=== PATIENT | female | born 1960 | race Caucasian/White ===

== ENCOUNTER 2018-09-20 05:57 | Outpatient (CLI) | payer OTHER ==
[~2018-09-20] VITALS: Ht 162.6 cm; Wt 81.6 kg
[2018-09-20] MEDS ORDERED: ATOR40TA70 PO (14:31)
[2018-09-20] MEDS ORDERED: ATEN50TA PO (14:31)
[2018-09-20] MEDS ORDERED: LISI1TAB10 PO (14:31)
[2018-09-20] MEDS ORDERED: LEVO112T55 PO (14:31)
[2018-09-20] MEDS ORDERED: INSU100V16 SQ (14:31)
[2018-09-20] MEDS ORDERED: NFESTCO.45 PO (14:31)
[2018-09-20] MEDS ORDERED: CHOL20003 PO (14:31)
[2018-09-20] MEDS ORDERED: ASPI-808 PO (14:31)
[2018-09-20] MEDS ORDERED: INSU100I34 SQ (14:31)
[2018-09-20] MEDS ORDERED: GABA-486 PO (14:31)
== END 2018-09-20 14:38 | disposition home or self-care (01) ==
LOC: PREOP 05:57
PROVIDERS: ATTEND Specialist
DX: Z01.818 Encounter for other preprocedural examination (principal)

== ENCOUNTER 2018-09-22 06:24 | Day surgery (SDC) | payer OTHER ==
[~2018-09-22] VITALS: Ht 162.6 cm; Wt 81.6 kg
[~2018-09-22 06:24] MED LIST: ASPI-808 PO; ATEN50TA PO; ATOR40TA70 PO; CHOL20003 PO; GABA-486 PO; INSU100I34 SQ; INSU100V16 SQ; LEVO112T55 PO; LISI1TAB10 PO; NFESTCO.45 PO
[2018-09-22 06:25] VITALS: BP 158/78
[2018-09-22] MEDS ORDERED: LIDOCAINE PF 1% 2 ML AMP IR PRN (06:30)
[2018-09-22] MEDS ORDERED: POVIDONE (BETADINE) OPHTH SOLN 5% 30 ML OP ONE (06:30)
[2018-09-22] MEDS ORDERED: TIMOLOL MALEATE 0.5% 5 ML (TIMOPTIC) BTL OU PRN (06:30)
[2018-09-22] MEDS ORDERED: MOXIFLOXACIN OPHTH SOLN 5 MG/ML 0.3 ML SYRINGE OP ONE (06:30)
[2018-09-22] MEDS: TETRACAINE 0.5% OPHTH SOLN 4 ML BTL (SINGLE DOSE ONLY) OU PRN ×4 (06:41→07:03)
[2018-09-22] MEDS ORDERED: MIDAZOLAM 2 MG/2 ML (VERSED) VIAL ONE (06:43)
[2018-09-22] MEDS: CYCLOPENTOLATE 1% (CYCLOGYL) 2 ML DROPS OP SCH ×3 (06:49→07:03)
[2018-09-22] MEDS: PHENYLEPHRINE 10% OPHTH (NEO-SYN) 5 ML BTL OU SCH ×3 (06:49→07:03)
--- NOTE | 2018-09-22 07:28 | Ophthalmologist Pre-Op Note ---
Pre-Operative Progress Note H&P Reviewed The H&P was reviewed, patient examined and no changes noted. Date H&P Reviewed: Sep 22, 2018 Time H&P Reviewed: 07:28 Pre-Op Dx Cataract, Left Eye JAQUELINE CATHERINE MD Sep 22, 2018 07:28
--- NOTE | 2018-09-22 07:56 | Ophthalmology Operative Report ---
Cataract removal/placement IOL PREOPERATIVE DIAGNOSIS: Cataract Left Eye POSTOPERATIVE DIAGNOSIS: Cataract Left Eye PROCEDURE: Cataract removal and placement of posterior chamber implant, left eye SURGEON: Remington Catherine ANESTHESIA: Topical with sedation COMPLICATIONS: None ESTIMATED BLOOD LOSS: Minimal DESCRIPTION OF PROCEDURE: After proper informed consent was obtained, the patient, a [id number] female, was taken to the Operating Room and the left eye was anesthetized with tetracaine. The left eye was then prepped and draped in the usual manner. A wire lid speculum was placed. A paracentesis was made at the left hand position. Preservative free lidocaine was injected into the anterior chamber followed by viscoelastic. A clear corneal incision was made in the temporal position. A capsulorrhexis was preformed and the central nuclear and cortical material were removed. The posterior capsule was polished and an Marcelo 22.0 AU00T0 was placed into the capsular bag. The residual viscoelastic was aspirated and balanced saline solution was injected into the anterior chamber. Moxifloxacin was injected into the anterior chamber. The wound was checked and found to be water tight. The patient tolerated the procedure well without complications. REMINGTON CATHERINE MD Sep 22, 2018 07:56
[2018-09-22] MEDS ORDERED: acetaZOLAMIDE ER 500 MG CAP (DIAMOX SEQUELS) PO ONE (08:00)
[2018-09-22 08:05] VITALS: BP 120/72
--- NOTE | 2018-09-22 10:24 | Anesthesia-General Post-Op ---
MAC Patient Condition Mental Status/LOC: Same as Preop Cardiovascular: Satisfactory Nausea/Vomiting: Absent Respiratory: Satisfactory Pain: Controlled Complications: Absent Post Op Complications Complications None Follow Up Care/Instructions Patient Instructions None needed. Anesthesiology Discharge Order Discharge Order Patient is doing well, no complaints, stable vital signs, no apparent adverse anesthesia problems. No complications reported per nursing. EMERALD YANEZ CRNA Sep 22, 2018 10:24
--- OUTSIDE RECORDS SUMMARY | 2018-09-22 17:49 | XMS REPORT | CCD ---
Author Author Cuca Bundy Organization [facility] Address [address] [place] [address] Phone Care Team Providers Care Connection Worker Name Role Phone PP Unavailable CCM Unavailable Summary Purpose Interface Exchange Insurance Providers Payer name Policy type / Coverage type Covered republican ID Effective Begin Date Effective End Date [employer] Commercial Insurance [id number] Unknown Family history Brother Diagnosis Age At Onset Hypertension Unknown Diabetes Unknown Hyperlipidemia Unknown Mother Diagnosis Age At Onset Hypertension Unknown Hyperlipidemia Unknown Heart Attack Unknown Diabetes Unknown Father Diagnosis Age At Onset Hypertension Unknown Hyperlipidemia Unknown Social History Social History Element Codes Description Effective Dates Marital status Unknown bryan 12/30/2017 Number of children Unknown 2 12/30/2017 Employment Unknown Retired 12/30/[address]: 485180750 Never smoker 12/30/[address]: 925411494 Never drinks alcohol 12/30/2017 Allergies, Adverse Reactions, Alerts Substance Reaction Codes Entered Date Inactivated Date Status NO KNOWN DRUG ALLERGIES Unknown 12/30/2017 No Inactive Date Active Past Medical History Illness Codes Condition Status Onset Date Resolved Date Essential (primary) hypertension ICD-9: 401.1 ICD-10: I10 Active 12/30/2017 Unknown Mixed hyperlipidemia ICD- 9: 272.2 ICD-10: E78.2 Active 12/30/2017 Unknown Other specified hypothyroidism ICD-9: 244.8 ICD-10: E03.8 Active 12/30/2017 Unknown Type 1 diabetes mellitus without complications ICD-9: 250.00 ICD-10: E10.9 Active 12/30/2017 Unknown Diabetes Unknown Active 12/30/2017 Unknown Problems Condition Codes Effective Dates Condition Status Essential (primary) hypertension ICD-9: 401.1 ICD-10: I10 12/30/2017 Active Mixed hyperlipidemia ICD- 9: 272.2 ICD-10: E78.2 12/30/2017 Active Other specified hypothyroidism ICD-9: 244.8 ICD-10: E03.8 12/30/2017 Active Type 1 diabetes mellitus without complications ICD-9: 250.00 ICD-10: E10.9 12/30/2017 Active Diabetes Unknown 12/30/2017 Active Medications Medication Codes Instructions Start Date Stop Date Status Fill Instructions Basaglar KwikPen U-100 Insulin 100 unit/mL (3 mL) subcutaneous RxNorm: 0866762 22 Unit(s) SQ BID 01/19/2018 No Stop Date Active dispense quantity sufficient for 3 month supply Lipitor 40 mg tablet RxNorm: 267127 1 Tablet(s) PO QHS 01/19/2018 01/13/2019 Active Humalog KwikPen (U-100) Insulin 100 unit/mL subcutaneous RxNorm: 9066151 Unit(s) SQ UD per sliding scale TID 01/19/2018 No Stop Date Active Dispense quantity sufficient for 3 months Premarin 0.45 mg tablet RxNorm: 451214 1 Tablet(s) PO daily 01/19/2018 01/13/2019 Active gabapentin 100 mg capsule RxNorm: 472981 1 Capsule(s) PO TID 01/19/2018 01/13/2019 Active atenolol 50 mg tablet RxNorm: 851445 1 Tablet(s) PO daily 01/19/2018 01/13/2019 Active lisinopril 20 mg-hydrochlorothiazide 25 mg tablet RxNorm: 426762 1 Tablet(s) PO daily 01/19/2018 01/13/2019 Active levothyroxine 112 mcg tablet RxNorm: 659964 1 Tablet(s) PO daily 01/19/2018 01/13/2019 Active Lipitor 40 mg tablet RxNorm: 861942 1 Tablet(s) PO QHS 01/19/2018 01/18/2018 Inactive aspirin 325 mg tablet RxNorm: 372491 1 Tablet(s) PO daily No Start Date Active Vitamin D3 2,000 unit capsule RxNorm: 979542 1 Capsule(s) PO daily No Start Date Active Premarin 0.45 mg tablet RxNorm: 612732 1 Tablet(s) PO daily No Start Date 01/18/2018 Inactive Lantus Solostar U-100 Insulin 100 unit/mL (3 mL) subcutaneous pen RxNorm: 573072 22 Unit(s) SQ BID No Start Date 01/10/2018 Inactive levothyroxine 112 mcg tablet RxNorm: 301197 1 Tablet(s) PO daily No Start Date 01/18/2018 Inactive Humalog KwikPen (U-100) Insulin 100 unit/mL subcutaneous RxNorm: 3783373 Unit(s) SQ us per sliding scale TID No Start Date 01/18/2018 Inactive simvastatin 40 mg tablet RxNorm: 886627 1 Tablet(s) PO daily No Start Date 01/18/2018 Inactive gabapentin 100 mg capsule RxNorm: 766581 1 Capsule(s) PO TID No Start Date 01/18/2018 Inactive lisinopril 20 mg-hydrochlorothiazide 25 mg tablet RxNorm: 446744 1 Tablet(s) PO daily No Start Date 01/18/2018 Inactive Basaglar KwikPen U-100 Insulin 100 unit/mL (3 mL) subcutaneous RxNorm: 7162729 22 Unit(s) SQ BID No Start Date 01/18/2018 Inactive dispense quantity sufficient for 3 month supply atenolol 50 mg tablet RxNorm: 782709 1 Tablet(s) PO daily No Start Date 01/18/2018 Inactive Medication Administered No Medication Administered data Immunizations No Immunization data Assessments Condition Codes Effective Dates Essential (primary) hypertension ICD-10: I10 ICD-9: 401.1 03/31/2018 Type 1 diabetes mellitus without complications ICD-10: E10.9 ICD-9: 250.00 03/31/2018 Mixed hyperlipidemia ICD-10: E78.2 ICD-9: 272.2 03/31/2018 Other specified hypothyroidism ICD-10: E03.8 ICD-9: 244.8 03/31/2018 Reason For Visit Reason For Visit Effective Dates Notes diabetes mellitus 03/31/2018 diabetes mellitus 12/30/2017 Results Observation Observation Code Item Item Code Result Date Comp Metabolic Wpa349 NA 138 mEq/L 01/06/2018 Comp Metabolic Jjm456 K 3.7 mEq/L 01/06/2018 Comp Metabolic Zcu858 CL 101 mEq/L 01/06/2018 Comp Metabolic Lrw226 CO2 24.0 mEq/L 01/06/2018 Comp Metabolic Lhn193 ANION GAP 17 01/06/2018 Comp Metabolic Hnp991 GLUCOSE 110 mg/dL 01/06/2018 Comp Metabolic Fzn886 Creat 0.9 mg/dL 01/06/2018 Comp Metabolic Xgc324 eGFR 70 ml/min/1.73m2 01/06/2018 Comp Metabolic Prz577 BUN 16 mg/dL 01/06/2018 Comp Metabolic Pgu563 B/C Ratio 18.0 Ratio 01/06/2018 Comp Metabolic Tqf792 CALCIUM 9.9 mg/dL 01/06/2018 Comp Metabolic Vay210 ALK PHOS 91 U/L 01/06/2018 Comp Metabolic Nyu613 AST(SGOT) 17 U/L 01/06/2018 Comp Metabolic Sqc955 ALT(SGPT) 21 U/L 01/06/2018 Comp Metabolic Uzp901 BILI T 1.0 mg/dL 01/06/2018 Comp Metabolic Blj075 ALBUMIN 4.5 g/dL 01/06/2018 Comp Metabolic Pkc211 TPRO 7.3 g/dL 01/06/2018 Comp Metabolic Sdq147 GLOB 2.9 g/dL 01/06/2018 Comp Metabolic Loa484 A/G Ratio 1.6 Ratio 01/06/2018 Comp Metabolic Zcf517 Osmo 278 mOsmo 01/06/2018 %Hba1C Xmi933 % HbA1c 24024- 6 6.9 % 01/06/2018 %Hba1C Udt815 Gluc Ave 151 mg/dL 01/06/2018 Lipid Ord30 CHOL 244 mg/dL 01/06/2018 Lipid Ord30 HDL 62.0 mg/dl 01/06/2018 Lipid Ord30 TRIG 107 mg/dL 01/06/2018 Lipid Ord30 LDL 161 mg/dL 01/06/2018 Lipid Ord30 C/HDL 3.9 Ratio 01/06/2018 Cbc With Differential Ord2 WBC 11.39 K/ul 01/06/2018 Cbc With Differential Ord2 RBC 4.33 M/ul 01/06/2018 Cbc With Differential Ord2 HGB 14.3 g/dl 01/06/2018 Cbc With Differential Ord2 HCT 42.1 % 01/06/2018 Cbc With Differential Ord2 Neut% 71.5 % 01/06/2018 Cbc With Differential Ord2 MCV 97.2 fl 01/06/2018 Cbc With Differential Ord2 Lymph% 20.5 % 01/06/2018 Cbc With Differential Ord2 MCH 33.0 pg 01/06/2018 Cbc With Differential Ord2 [place]% 7.7 % 01/06/2018 Cbc With Differential Ord2 MCHC 34.0 pg 01/06/2018 Cbc With Differential Ord2 Eos% 0.1 % 01/06/2018 Cbc With Differential Ord2 PLT 277 K/ul 01/06/2018 Cbc With Differential Ord2 Baso% 0.2 % 01/06/2018 Cbc With Differential Ord2 RDW 14.6 % 01/06/2018 Cbc With Differential Ord2 Neut ABS# 8.14 K/ul 01/06/2018 Cbc With Differential Ord2 Lymph ABS# 2.34 K/ul 01/06/2018 Cbc With Differential Ord2 [place] ABS# 0.9 K/ul 01/06/2018 Cbc With Differential Ord2 Eos ABS# 0.0 K/ul 01/06/2018 Cbc With Differential Ord2 Baso ABS# 0.0 K/ul 01/06/2018 Free T4 Ork862 FREE T4 1.13 ng/dL 01/06/2018 Tsh Ord6 TSH (3rd IS) 1.40 uIU/mL 01/06/2018 Review of Systems System Result Effective Dates Constitutional No recent illness 03/31/2018 Constitutional No fever 03/31/2018 Constitutional No diaphoresis 03/31/2018 Constitutional No chills 03/31/2018 Eyes No eye erythema 03/31/2018 Ears/Nose/Throat/Neck No nasal discharge 03/31/2018 Ears/Nose/Throat/Neck No nasal allergies 03/31/2018 Cardiovascular No chest pain/pressure 03/31/2018 Cardiovascular No dyspnea 03/31/2018 Respiratory No cough 03/31/2018 Gastrointestinal No abdominal pain 03/31/2018 Gastrointestinal No diarrhea 03/31/2018 Gastrointestinal No constipation 03/31/2018 Neurologic No alteration of consciousness 03/31/2018 Neurologic No mental status change 03/31/2018 Constitutional No recent illness 12/30/2017 Constitutional No chills 12/30/2017 Constitutional No diaphoresis 12/30/2017 Constitutional No fever 12/30/2017 Eyes No eye erythema 12/30/2017 Ears/Nose/Throat/Neck No nasal discharge 12/30/2017 Ears/Nose/Throat/Neck No nasal allergies 12/30/2017 Cardiovascular No chest pain/pressure 12/30/2017 Cardiovascular No dyspnea 12/30/2017 Respiratory No cough 12/30/2017 Respiratory No chest congestion 12/30/2017 Gastrointestinal No abdominal pain 12/30/2017 Gastrointestinal No constipation 12/30/2017 Gastrointestinal No diarrhea 12/30/2017 Musculoskeletal No joint complaint 12/30/2017 Dermatologic No rash 12/30/2017 Neurologic No alteration of consciousness 12/30/2017 Neurologic No mental status change 12/30/2017 Musculoskeletal muscle weakness 12/30/2017 Physical Exam Exam Name System Name Item Name Status Result Effective Dates Notes Full Exam - General 1994 Constitutional general appearance Overall: well developed 03/31/2018 None Full Exam - General 1994 Constitutional general appearance Overall: in no acute distress 03/31/2018 None Full Exam - General 1994 Constitutional general appearance Overall: well nourished 03/31/2018 None Full Exam - General 1994 Eyes conjunctiva/eyelids Overall: conjunctiva clear 03/31/2018 None Full Exam - General 1994 Eyes conjunctiva/eyelids Overall: cornea clear 03/31/2018 None Full Exam - General 1994 Eyes conjunctiva/eyelids Overall: eyelids normal 03/31/2018 None Full Exam - General 1994 Ears/Nose/Throat otoscopic exam Overall: tympanic membranes clear 03/31/2018 None Full Exam - General 1994 Ears/Nose/Throat otoscopic exam Overall: external auditory canals clear 03/31/2018 None Full Exam - General 1994 Ears/Nose/Throat lips/teeth/gingiva Overall: benign lips 03/31/2018 None Full Exam - General 1994 Ears/Nose/Throat oral cavity/pharynx/larynx Overall: oral mucosa clear 03/31/2018 None Full Exam - General 1994 Respiratory respiratory effort/rhythm Overall: normal rate 03/31/2018 None Full Exam - General 1994 Respiratory respiratory effort/rhythm Overall: no retractions 03/31/2018 None Full Exam - General 1994 Respiratory auscultation Overall: breath sounds clear bilaterally 03/31/2018 None Full Exam - General 1994 Cardiovascular auscultation of heart Overall: regular rate 03/31/2018 None Full Exam - General 1994 Cardiovascular auscultation of heart Overall: normal heart sounds 03/31/2018 None Full Exam - General 1994 Musculoskeletal gait and station Gait: asymmetric 03/31/2018 None Full Exam - General 1994 Musculoskeletal gait and station Gait: abnormal stride length 03/31/2018 None Full Exam - General 1994 Musculoskeletal gait and station Gait: abnormal stance 03/31/2018 None Full Exam - General 1994 Musculoskeletal gait and station Gait: unable to turn quickly 03/31/2018 None Full Exam - General 1994 Musculoskeletal head and neck Overall: head atraumatic 03/31/2018 None Full Exam - General 1994 Neurologic cranial nerves Overall: crainial nerves 2 - 12 grossly intact 03/31/2018 None Full Exam - General 1994 Psychiatric orientation/consciousness Overall: oriented to person, place and time 03/31/2018 None Full Exam - General 1994 Psychiatric mood and affect Overall: normal mood and affect 03/31/2018 None Full Exam - General 1994 Psychiatric appearance Overall: well-groomed, good eye contact 03/31/2018 None Full Exam - General 1994 Constitutional general appearance Overall: well developed 12/30/2017 None Full Exam - General 1994 Constitutional general appearance Overall: in no acute distress 12/30/2017 None Full Exam - General 1994 Constitutional general appearance Overall: well nourished 12/30/2017 None Full Exam - General 1994 Eyes conjunctiva/eyelids Overall: eyelids normal 12/30/2017 None Full Exam - General 1994 Eyes conjunctiva/eyelids Overall: cornea clear 12/30/2017 None Full Exam - General 1994 Eyes conjunctiva/eyelids Overall: conjunctiva clear 12/30/2017 None Full Exam - General 1994 Eyes pupils and irises Overall: pupils equal, round, reactive to light and accomodation 12/30/2017 None Full Exam - General 1994 Ears/Nose/Throat otoscopic exam Overall: tympanic membranes clear 12/30/2017 None Full Exam - General 1994 Ears/Nose/Throat otoscopic exam Overall: external auditory canals clear 12/30/2017 None Full Exam - General 1994 Ears/Nose/Throat lips/teeth/gingiva Overall: benign lips 12/30/2017 None Full Exam - General 1994 Ears/Nose/Throat oral cavity/pharynx/larynx Overall: oral mucosa clear 12/30/2017 None Full Exam - General 1994 Ears/Nose/Throat oral cavity/pharynx/larynx Overall: oropharyngeal mucosa clear 12/30/2017 None Full Exam - General 1994 Respiratory respiratory effort/rhythm Overall: normal rate 12/30/2017 None Full Exam - General 1994 Respiratory respiratory effort/rhythm Overall: no retractions 12/30/2017 None Full Exam - General 1994 Respiratory auscultation Overall: breath sounds clear bilaterally 12/30/2017 None Full Exam - General 1994 Cardiovascular auscultation of heart Overall: regular rate 12/30/2017 None Full Exam - General 1994 Cardiovascular auscultation of heart Overall: normal heart sounds 12/30/2017 None Full Exam - General 1994 Abdomen abdominal exam Overall: normal bowel sounds 12/30/2017 None Full Exam - General 1994 Abdomen abdominal exam Overall: no tenderness 12/30/2017 None Full Exam - General 1994 Musculoskeletal head and neck Overall: head atraumatic 12/30/2017 None Full Exam - General 1994 Musculoskeletal gait and station Overall: normal station 12/30/2017 None Full Exam - General 1994 Musculoskeletal gait and station Overall: normal gait 12/30/2017 None Full Exam - General 1994 Neurologic cranial nerves Overall: crainial nerves 2 - 12 grossly intact 12/30/2017 None Full Exam - General 1994 Psychiatric orientation/consciousness Overall: oriented to person, place and time 12/30/2017 None Full Exam - General 1994 Psychiatric mood and affect Overall: normal mood and affect 12/30/2017 None Full Exam - General 1994 Psychiatric appearance Overall: well-groomed, good eye contact 12/30/2017 None Procedures No Procedures data Vital Signs Date Vital 03/31/2018 Blood Pressure 1: 122/74 Code: 8480-6 BMI: 31.4 Code: 62008-9 Heart Rate 1: 72 bpm Height: 5'4" SpO2: 97% Weight: 183 lbs 12/30/2017 Blood Pressure 1: 140/76 Code: 8480-6 Blood Pressure 1: 158/92 Code: 8480-6 BMI: 31.8 Code: 88040-2 Heart Rate 1: 84 bpm Height: 5'4" SpO2: 98% Weight: 185 lbs Functional Status No Functional Status data History of Present Illness Symptom Name Status Result Effective Date Notes Quality insulin dependent 03/31/2018 None Quality chronic 03/31/2018 None Nutrition regular diet 03/31/2018 None Location oral intake 03/31/2018 None diabetes mellitus Quality insulin dependent 12/30/2017 None diabetes mellitus Quality chronic 12/30/2017 None diabetes mellitus Test results Pt checking blood glucose readings, did not bring results to clinic 12/30/2017 None diabetes mellitus Glucose monitoring before meals 12/30/2017 None diabetes mellitus Glucose monitoring fasting 12/30/2017 None diabetes mellitus Nutrition regular diet 12/30/2017 None diabetes mellitus Exercise no exercise 12/30/2017 None diabetes mellitus Blood glucose levels between 60 and 120 12/30/2017 None diabetes mellitus Test results HgbA1c level 6.1 12/30/2017 None medication follow up Additional Comments medication use 12/30/2017 None medication follow up Location oral intake 12/30/2017 None Advance Directives No Advance Directive data Encounters Encounter Performer Location Codes Date [address] EST. PATIENT, LEVEL III Diagnosis: Essential (primary) hypertension[ICD10: I10] Diagnosis: Type 1 diabetes mellitus without complications[ICD10: E10.9] Diagnosis: Mixed hyperlipidemia[ICD10: E78.2] Diagnosis: Other specified hypothyroidism[ICD10: E03.8] [facility] CPT-4: [id number] 03/31/2018 OFFICE VISIT, NEW - LEVEL 4 Diagnosis: Type 1 diabetes mellitus without complications[ICD10: E10.9] Diagnosis: Other specified hypothyroidism[ICD10: E03.8] Diagnosis: Essential (primary) hypertension[ICD10: I10] Diagnosis: Mixed hyperlipidemia[ICD10: E78.2] [facility] CPT-4: [id number] 12/30/2017 Plan of Care Planned Activity Notes Codes Status Date Care Plan: Comp Metabolic Pending 04/03/2018 Care Plan: %Hba1C LOINC : 45927-5 Pending 04/03/2018 Care Plan: Tsh Pending 04/03/2018 Care Plan: Lipid Pending 04/03/2018 Care Plan: Free T4 Pending 04/03/2018 Visit Plan: Diabetes Mellitus - controlled - per recent FSBS reports. I have recommended for the patient to have follow up labs prior to the next office visit. The patient has been instructed to continue with current medications as previously directed, continue with regular FSBS monitoring to assure continued control of diabetes. Pt to call for any acute concerns, complaints, or if the blood glucose readings are starting to become less controlled. Hypertension - well controlled - continue with current medications, continue with no added salt diet. Pt has been encouraged to exercise daily. The pt has been advised to call the office if there are any acute concerns about change in blood pressure readings at home. Hypothyroidism - pt with chronic hypothyroidism, continue with current medication, will monitor pt to signs or symptoms of lack of adequate supplementation. Pt is to continue with current dose of medication unless directed otherwise. Check labs at regular intervals q 3 months or q 6 months based on previous levels of control. Hyperlipidemia - pt has been counseled about appropriate diet, exercise, and need for low fat food choices. I have discussed the need for the patient to take medications as pre scribed. If the patient has negative side effects from the medication, they are to CALL the office and not abruptly discontinue the medication without discussion with a practitioner in the office. We will check labs in 3-6 months for follow up on the patient's chronic medical problem and to assure normal liver response to medications. 03/31/2018 [facility]ment[facility] Bund[phone] [id number] ([facility] min[facility] Moderate 03/31/2018 Patient Education: Patient Medication Summary Completed 03/31/2018 Patient Education: Cholesterol Management Completed 03/31/2018 Visit Plan: Diabetes Mellitus - controlled - per recent FSBS reports. I have recommended for the patient to have follow up labs prior to the next office visit. The patient has been instructed to continue with current medications as previously directed, continue with regular FSBS monitoring to assure continued control of diabetes. Pt to call for any acute concerns, complaints, or if the blood glucose readings are starting to become less controlled. Hypertension - well controlled - continue with current medications, continue with no added salt diet. Pt has been encouraged to exercise daily. The pt has been advised to call the office if there are any acute concerns about change in blood pressure readings at home. Hypothyroidism - pt with chronic hypothyroidism, continue with current medication, will monitor pt to signs or symptoms of lack of adequate supplementation. Pt is to continue with current dose of medication unless directed otherwise. Check labs at regular intervals q 3 months or q 6 months based on previous levels of control. Hyperlipidemia - pt has been counseled about appropriate diet, exercise, and need for low fat food choices. I have discussed the need for the patient to take medications as pre scribed. If the patient has negative side effects from the medication, they are to CALL the office and not abruptly discontinue the medication without discussion with a practitioner in the office. We will check labs in 3-6 months for follow up on the patient's chronic medical problem and to assure normal liver response to medications. 12/30/2017 [facility]ment: [facility] Bund[phone] [id number] New Patient 12/30/2017 Patient Education: Patient Medication Summary Completed 12/30/2017 Patient Education: Cholesterol Management Completed 12/30/2017 Instructions Comment . Diabetes Mellitus - controlled - per recent FSBS reports. I have recommended for the patient to have follow up labs prior to the next office visit. The patient has been instructed to continue with current medications as previously directed, continue with regular FSBS monitoring to assure continued control of diabetes. Pt to call for any acute concerns, complaints, or if the blood glucose readings are starting to become less controlled. Hypertension - well controlled - continue with current medications, continue with no added salt diet. Pt has been encouraged to exercise daily. The pt has been advised to call the office if there are any acute concerns about change in blood pressure readings at home. Hypothyroidism - pt with chronic hypothyroidism, continue with current medication, will monitor pt to signs or symptoms of lack of adequate supplementation. Pt is to continue with current dose of medication unless directed otherwise. Check labs at regular intervals q 3 months or q 6 months based on previous levels of control. Hyperlipidemia - pt has been counseled about appropriate diet, exercise, and need for low fat food choices. I have discussed the need for the patient to take medications as prescribed. If the patient has negative side effects from the medication, they are to CALL the office and not abruptly discontinue the medication without discussion with a practitioner in the office. We will check labs in 3-6 months for follow up on the patient's chronic medical problem and to assure normal liver response to medications. . Diabetes Mellitus - controlled - per recent FSBS reports. I have recommended for the patient to have follow up labs prior to the next office visit. The patient has been instructed to continue with current medications as previously directed, continue with regular FSBS monitoring to assure continued control of diabetes. Pt to call for any acute concerns, complaints, or if the blood glucose readings are starting to become less controlled. Hypertension - well controlled - continue with current medications, continue with no added salt diet. Pt has been encouraged to exercise daily. The pt has been advised to call the office if there are any acute concerns about change in blood pressure readings at home. Hypothyroidism - pt with chronic hypothyroidism, continue with current medication, will monitor pt to signs or symptoms of lack of adequate supplementation. Pt is to continue with current dose of medication unless directed otherwise. Check labs at regular intervals q 3 months or q 6 months based on previous levels of control. Hyperlipidemia - pt has been counseled about appropriate diet, exercise, and need for low fat food choices. I have discussed the need for the patient to take medications as prescribed. If the patient has negative side effects from the medication, they are to CALL the office and not abruptly discontinue the medication without discussion with a practitioner in the office. We will check labs in 3-6 months for follow up on the patient's chronic medical problem and to assure normal liver response to medications.
--- OUTSIDE RECORDS SUMMARY | 2018-09-22 17:49 | XMS REPORT | CCD ---
Author Author Cuca Bundy Organization [facility] Address [address] [place] [address] Phone Care Team Providers Care Head Paper Tester Name Role Phone PP Unavailable CCM Unavailable Summary Purpose Interface Exchange Insurance Providers Payer name Policy type / Coverage type Covered alliance party ID Effective Begin Date Effective End Date CIGNA Commercial Insurance [id number] Unknown Family history Brother Diagnosis Age At [...] Unknown Retired 12/30/[address]: 380789769 Never smoker 12/30/[address]: 897781755 Never drinks alcohol 12/30/2017 Allergies, Adverse Reactions, [...] Insulin 100 unit/mL (3 mL) subcutaneous RxNorm: 6062610 22 Unit(s) SQ BID 01/19/2018 No Stop Date Active dispense quantity sufficient for 3 month supply Lipitor 40 mg tablet RxNorm: 037796 1 Tablet(s) PO QHS 01/19/2018 01/13/2019 Active Humalog KwikPen (U-100) Insulin 100 unit/mL subcutaneous RxNorm: 4494870 Unit(s) SQ UD per sliding scale TID 01/19/2018 No Stop Date Active Dispense quantity sufficient for 3 months Premarin 0.45 mg tablet RxNorm: 912263 1 Tablet(s) PO daily 01/19/2018 01/13/2019 Active gabapentin 100 mg capsule RxNorm: 694235 1 Capsule(s) PO TID 01/19/2018 01/13/2019 Active atenolol 50 mg tablet RxNorm: 574056 1 Tablet(s) PO daily 01/19/2018 01/13/2019 Active lisinopril 20 mg-hydrochlorothiazide 25 mg tablet RxNorm: 744157 1 Tablet(s) PO daily 01/19/2018 01/13/2019 Active levothyroxine 112 mcg tablet RxNorm: 193804 1 Tablet(s) PO daily 01/19/2018 01/13/2019 Active Lipitor 40 mg tablet RxNorm: 275301 1 Tablet(s) PO QHS 01/19/2018 01/18/2018 Inactive aspirin 325 mg tablet RxNorm: 728638 1 Tablet(s) PO daily No Start Date Active Vitamin D3 2,000 unit capsule RxNorm: 997077 1 Capsule(s) PO daily No Start Date Active Premarin 0.45 mg tablet RxNorm: 729150 1 Tablet(s) PO daily No Start Date 01/18/2018 Inactive Lantus Solostar U-100 Insulin 100 unit/mL (3 mL) subcutaneous pen RxNorm: 802508 22 Unit(s) SQ BID No Start Date 01/10/2018 Inactive levothyroxine 112 mcg tablet RxNorm: 605964 1 Tablet(s) PO daily No Start Date 01/18/2018 Inactive Humalog KwikPen (U-100) Insulin 100 unit/mL subcutaneous RxNorm: 1341076 Unit(s) SQ us per sliding scale TID No Start Date 01/18/2018 Inactive simvastatin 40 mg tablet RxNorm: 730430 1 Tablet(s) PO daily No Start Date 01/18/2018 Inactive gabapentin 100 mg capsule RxNorm: 580890 1 Capsule(s) PO TID No Start Date 01/18/2018 Inactive lisinopril 20 mg-hydrochlorothiazide 25 mg tablet RxNorm: 030560 1 Tablet(s) PO daily No Start Date 01/18/2018 Inactive Basaglar KwikPen U-100 Insulin 100 unit/mL (3 mL) subcutaneous RxNorm: 6168509 22 Unit(s) SQ BID No Start Date 01/18/2018 Inactive dispense quantity sufficient for 3 month supply atenolol 50 mg tablet RxNorm: 724685 1 Tablet(s) PO daily No Start Date [...] Item Item Code Result Date Comp Metabolic Olk906 NA 138 mEq/L 01/06/2018 Comp Metabolic Fxb998 K 3.7 mEq/L 01/06/2018 Comp Metabolic Bet257 CL 101 mEq/L 01/06/2018 Comp Metabolic Rnj402 CO2 24.0 mEq/L 01/06/2018 Comp Metabolic Rio249 ANION GAP 17 01/06/2018 Comp Metabolic Ysr126 GLUCOSE 110 mg/dL 01/06/2018 Comp Metabolic Lqy239 Creat 0.9 mg/dL 01/06/2018 Comp Metabolic Syg092 eGFR 70 ml/min/1.73m2 01/06/2018 Comp Metabolic Bjk516 BUN 16 mg/dL 01/06/2018 Comp Metabolic Zxy569 B/C Ratio 18.0 Ratio 01/06/2018 Comp Metabolic Tas783 CALCIUM 9.9 mg/dL 01/06/2018 Comp Metabolic Mht817 ALK PHOS 91 U/L 01/06/2018 Comp Metabolic Ypp684 AST(SGOT) 17 U/L 01/06/2018 Comp Metabolic Kmw769 ALT(SGPT) 21 U/L 01/06/2018 Comp Metabolic Voj657 BILI T 1.0 mg/dL 01/06/2018 Comp Metabolic Faz053 ALBUMIN 4.5 g/dL 01/06/2018 Comp Metabolic Tbr333 TPRO 7.3 g/dL 01/06/2018 Comp Metabolic Bji780 GLOB 2.9 g/dL 01/06/2018 Comp Metabolic Obs385 A/G Ratio 1.6 Ratio 01/06/2018 Comp Metabolic Jlg580 Osmo 278 mOsmo 01/06/2018 %Hba1C Lml952 % HbA1c 46618- 6 6.9 % 01/06/2018 %Hba1C Xvp560 Gluc Ave 151 mg/dL 01/06/2018 Lipid Ord30 [...] 33.0 pg 01/06/2018 Cbc With Differential Ord2 [place]% 7.7 % 01/06/2018 Cbc With Differential Ord2 [...] 2.34 K/ul 01/06/2018 Cbc With Differential Ord2 [place] ABS# 0.9 K/ul 01/06/2018 Cbc With Differential Ord2 Eos ABS# 0.0 K/ul 01/06/2018 Cbc With Differential Ord2 Baso ABS# 0.0 K/ul 01/06/2018 Free T4 [id number] FREE T4 1.13 ng/dL 01/06/2018 Tsh Ord6 [...] 1: 122/74 Code: 8480-6 BMI: 31.4 Code: 92907-6 Heart Rate 1: 72 bpm Height: 5'4" SpO2: 97% Weight: 183 lbs 12/30/2017 Blood Pressure 1: 140/76 Code: 8480-6 Blood Pressure 1: 158/92 Code: 8480-6 BMI: 31.8 Code: 11001-4 Heart Rate 1: 84 bpm Height: 5'4" [...] data Encounters Encounter Performer Location Codes Date 10397 EST. PATIENT, LEVEL III Diagnosis: Essential (primary) hypertension[ICD10: I10] Diagnosis: Type 1 diabetes mellitus without complications[ICD10: E10.9] Diagnosis: Mixed hyperlipidemia[ICD10: E78.2] Diagnosis: Other specified hypothyroidism[ICD10: E03.8] [facility] CPT-4: 60027 03/31/2018 OFFICE VISIT, NEW - LEVEL 4 Diagnosis: Type 1 diabetes mellitus without complications[ICD10: E10.9] Diagnosis: Other specified hypothyroidism[ICD10: E03.8] Diagnosis: Essential (primary) hypertension[ICD10: I10] Diagnosis: Mixed hyperlipidemia[ICD10: E78.2] [facility] CPT-4: 42417 12/30/2017 Plan of Care Planned Activity Notes Codes Status Date Care Plan: Comp Metabolic Pending 04/03/2018 Care Plan: %Hba1C LOINC : 23699-7 Pending 04/03/2018 Care Plan: Tsh Pending 04/03/2018 [...] assure normal liver response to medications. 03/31/2018 Visit Plan: Diabetes Mellitus - controlled [...] to medications. 03/31/2018 Appointment: Cuca Bundy WPtel: [address] [place], [place] [id number] (15 min) Moderate 03/31/2018 Patient Education: Patient [...] medications. 12/30/2017 [facility]ment: [facility] [phone] [facility] [facility] 12/30/2017 Patient Education: Patient [...]
--- OUTSIDE RECORDS SUMMARY | 2018-09-22 17:50 | XMS REPORT | CCD ---
Author Author Cuca Bundy Organization [facility] Address [address] [place] [address] Phone Care Team Providers Care Educational Resource Coordinator Name Role Phone PP Unavailable CCM Unavailable Summary Purpose Interface Exchange Insurance Providers Payer name Policy type / Coverage type Covered green party ID Effective Begin Date Effective End Date C[employer]NA Commercial Insurance [id number] Unknown Family history Brother Diagnosis Age At [...] Unknown Retired 12/30/[address]: 531624758 Never smoker 12/30/[address]: 749631912 Never drinks alcohol 12/30/2017 Allergies, Adverse Reactions, [...] Insulin 100 unit/mL (3 mL) subcutaneous RxNorm: 7419577 22 Unit(s) SQ BID 01/19/2018 No Stop Date Active dispense quantity sufficient for 3 month supply Lipitor 40 mg tablet RxNorm: 240129 1 Tablet(s) PO QHS 01/19/2018 01/13/2019 Active Humalog KwikPen (U-100) Insulin 100 unit/mL subcutaneous RxNorm: 1491583 Unit(s) SQ UD per sliding scale TID 01/19/2018 No Stop Date Active Dispense quantity sufficient for 3 months Premarin 0.45 mg tablet RxNorm: 834714 1 Tablet(s) PO daily 01/19/2018 01/13/2019 Active gabapentin 100 mg capsule RxNorm: 622857 1 Capsule(s) PO TID 01/19/2018 01/13/2019 Active atenolol 50 mg tablet RxNorm: 055564 1 Tablet(s) PO daily 01/19/2018 01/13/2019 Active lisinopril 20 mg-hydrochlorothiazide 25 mg tablet RxNorm: 562041 1 Tablet(s) PO daily 01/19/2018 01/13/2019 Active levothyroxine 112 mcg tablet RxNorm: 716189 1 Tablet(s) PO daily 01/19/2018 01/13/2019 Active Lipitor 40 mg tablet RxNorm: 176365 1 Tablet(s) PO QHS 01/19/2018 01/18/2018 Inactive aspirin 325 mg tablet RxNorm: 379164 1 Tablet(s) PO daily No Start Date Active Vitamin D3 2,000 unit capsule RxNorm: 574410 1 Capsule(s) PO daily No Start Date Active Premarin 0.45 mg tablet RxNorm: 701960 1 Tablet(s) PO daily No Start Date 01/18/2018 Inactive Lantus Solostar U-100 Insulin 100 unit/mL (3 mL) subcutaneous pen RxNorm: 093395 22 Unit(s) SQ BID No Start Date 01/10/2018 Inactive levothyroxine 112 mcg tablet RxNorm: 527830 1 Tablet(s) PO daily No Start Date 01/18/2018 Inactive Humalog KwikPen (U-100) Insulin 100 unit/mL subcutaneous RxNorm: 6735816 Unit(s) SQ us per sliding scale TID No Start Date 01/18/2018 Inactive simvastatin 40 mg tablet RxNorm: 924492 1 Tablet(s) PO daily No Start Date 01/18/2018 Inactive gabapentin 100 mg capsule RxNorm: 205616 1 Capsule(s) PO TID No Start Date 01/18/2018 Inactive lisinopril 20 mg-hydrochlorothiazide 25 mg tablet RxNorm: 464161 1 Tablet(s) PO daily No Start Date 01/18/2018 Inactive Basaglar KwikPen U-100 Insulin 100 unit/mL (3 mL) subcutaneous RxNorm: 9666253 22 Unit(s) SQ BID No Start Date 01/18/2018 Inactive dispense quantity sufficient for 3 month supply atenolol 50 mg tablet RxNorm: 344482 1 Tablet(s) PO daily No Start Date [...] Item Item Code Result Date Comp Metabolic Bmz221 NA 138 mEq/L 01/06/2018 Comp Metabolic Zqv019 K 3.7 mEq/L 01/06/2018 Comp Metabolic Fzh441 CL 101 mEq/L 01/06/2018 Comp Metabolic Jcw859 CO2 24.0 mEq/L 01/06/2018 Comp Metabolic Kjd889 ANION GAP 17 01/06/2018 Comp Metabolic Gmx971 GLUCOSE 110 mg/dL 01/06/2018 Comp Metabolic Vgl800 Creat 0.9 mg/dL 01/06/2018 Comp Metabolic Wdd123 eGFR 70 ml/min/1.73m2 01/06/2018 Comp Metabolic Qhy027 BUN 16 mg/dL 01/06/2018 Comp Metabolic Sfe269 B/C Ratio 18.0 Ratio 01/06/2018 Comp Metabolic Wub269 CALCIUM 9.9 mg/dL 01/06/2018 Comp Metabolic Bia595 ALK PHOS 91 U/L 01/06/2018 Comp Metabolic Jbs152 AST(SGOT) 17 U/L 01/06/2018 Comp Metabolic Cax598 ALT(SGPT) 21 U/L 01/06/2018 Comp Metabolic Twn379 BILI T 1.0 mg/dL 01/06/2018 Comp Metabolic Hor111 ALBUMIN 4.5 g/dL 01/06/2018 Comp Metabolic Tcm547 TPRO 7.3 g/dL 01/06/2018 Comp Metabolic Saq835 GLOB 2.9 g/dL 01/06/2018 Comp Metabolic Jgm404 A/G Ratio 1.6 Ratio 01/06/2018 Comp Metabolic Bbd863 Osmo 278 mOsmo 01/06/2018 %Hba1C Soq300 % HbA1c 61721- 6 6.9 % 01/06/2018 %Hba1C Ihp595 Gluc Ave 151 mg/dL 01/06/2018 Lipid Ord30 [...] 33.0 pg 01/06/2018 Cbc With Differential Ord2 [place]% 7.7 % 01/06/2018 Cbc With Differential Ord2 [...] 2.34 K/ul 01/06/2018 Cbc With Differential Ord2 [place] ABS# 0.9 K/ul 01/06/2018 Cbc With Differential Ord2 Eos ABS# 0.0 K/ul 01/06/2018 Cbc With Differential Ord2 Baso ABS# 0.0 K/ul 01/06/2018 Free T4 [id number] FREE T4 1.13 ng/dL 01/06/2018 Tsh Ord6 [...] 1: 122/74 Code: 8480-6 BMI: 31.4 Code: 38877-3 Heart Rate 1: 72 bpm Height: 5'4" SpO2: 97% Weight: 183 lbs 12/30/2017 Blood Pressure 1: 140/76 Code: 8480-6 Blood Pressure 1: 158/92 Code: 8480-6 BMI: 31.8 Code: 02747-0 Heart Rate 1: 84 bpm Height: 5'4" [...] data Encounters Encounter Performer Location Codes Date [address]5680 EST. PATIENT, LEVEL III Diagnosis: Essential (primary) hypertension[ICD10: I10] Diagnosis: Type 1 diabetes mellitus without complications[ICD10: E10.9] Diagnosis: Mixed hyperlipidemia[ICD10: E78.2] Diagnosis: Other specified hypothyroidism[ICD10: E03.8] [facility] CPT-4: 57303 03/31/2018 OFFICE VISIT, NEW - LEVEL 4 Diagnosis: Type 1 diabetes mellitus without complications[ICD10: E10.9] Diagnosis: Other specified hypothyroidism[ICD10: E03.8] Diagnosis: Essential (primary) hypertension[ICD10: I10] Diagnosis: Mixed hyperlipidemia[ICD10: E78.2] [facility] CPT-4: 88988 12/30/2017 Plan of Care Planned Activity Notes Codes Status Date Care Plan: Comp Metabolic Pending 04/03/2018 Care Plan: %Hba1C LOINC : 41503-3 Pending 04/03/2018 Care Plan: Tsh Pending 04/03/2018 [...] medications. 03/31/2018 App[facility]ment: [facility] [phone] [id number] ([facility]) Moderate 03/31/2018 Patient Education: [...] medications. 12/30/2017 App[facility]ment: [facility] [phone] [facility] New Patient 12/30/2017 Patient Education: Patient [...]
--- OUTSIDE RECORDS SUMMARY | 2018-09-22 17:50 | XMS REPORT | CCD ---
Author Author Cuca Bundy Organization [facility], [facility] Address [address] [place] [address] Phone Care Team Providers Care Machine Operator Hop Worker Name Role Phone PP Unavailable CCM Unavailable Summary Purpose Interface Exchange Insurance Providers Payer name Policy type / Coverage type Covered libertarian ID Effective Begin Date Effective End Date C[employer] Commercial Insurance [id number] Unknown Family history Brother Diagnosis Age At [...] Unknown Retired 12/30/[address]: 650218277 Never smoker 12/30/[address]: 266195678 Never drinks alcohol 12/30/2017 Allergies, Adverse Reactions, Alerts Substance Reaction Codes Entered Date Inactivated Date Status NO KNOWN DRUG ALLERGIES Unknown 12/30/2017 No Inactive Date Active Past Medical History Illness Codes Condition Status Onset Date Resolved Date Diabetes Unknown Active 12/30/2017 Unknown Essential (primary) hypertension ICD-9: 401.1 ICD-10: I10 Active 12/30/2017 Unknown Mixed hyperlipidemia ICD- 9: 272.2 ICD-10: E78.2 Active 12/30/2017 Unknown Other specified hypothyroidism ICD-9: 244.8 ICD-10: E03.8 Active 12/30/2017 Unknown Type 1 diabetes mellitus without complications ICD-9: 250.00 ICD-10: E10.9 Active 12/30/2017 Unknown Problems Condition Codes Effective Dates Condition Status Diabetes Unknown 12/30/2017 Active Essential (primary) hypertension ICD-9: 401.1 ICD-10: I10 12/30/2017 Active Mixed hyperlipidemia ICD- 9: 272.2 ICD-10: E78.2 12/30/2017 Active Other specified hypothyroidism ICD-9: 244.8 ICD-10: E03.8 12/30/2017 Active Type 1 diabetes mellitus without complications ICD-9: 250.00 ICD-10: E10.9 12/30/2017 Active Medications Medication Codes Instructions Start Date Stop Date Status Fill Instructions Basaglar KwikPen U-100 Insulin 100 unit/mL (3 mL) subcutaneous RxNorm: 2229102 22 Unit(s) SQ BID 01/19/2018 No Stop Date Active dispense quantity sufficient for 3 month supply Lipitor 40 mg tablet RxNorm: 241664 1 Tablet(s) PO QHS 01/19/2018 01/13/2019 Active Humalog KwikPen (U-100) Insulin 100 unit/mL subcutaneous RxNorm: 3239147 Unit(s) SQ UD per sliding scale TID 01/19/2018 No Stop Date Active Dispense quantity sufficient for 3 months Premarin 0.45 mg tablet RxNorm: 253962 1 Tablet(s) PO daily 01/19/2018 01/13/2019 Active gabapentin 100 mg capsule RxNorm: 159931 1 Capsule(s) PO TID 01/19/2018 01/13/2019 Active atenolol 50 mg tablet RxNorm: 495977 1 Tablet(s) PO daily 01/19/2018 01/13/2019 Active lisinopril 20 mg-hydrochlorothiazide 25 mg tablet RxNorm: 211938 1 Tablet(s) PO daily 01/19/2018 01/13/2019 Active levothyroxine 112 mcg tablet RxNorm: 411731 1 Tablet(s) PO daily 01/19/2018 01/13/2019 Active Lipitor 40 mg tablet RxNorm: 529427 1 Tablet(s) PO QHS 01/19/2018 01/18/2018 Inactive aspirin 325 mg tablet RxNorm: 915923 1 Tablet(s) PO daily No Start Date Active Vitamin D3 2,000 unit capsule RxNorm: 150410 1 Capsule(s) PO daily No Start Date Active Premarin 0.45 mg tablet RxNorm: 762907 1 Tablet(s) PO daily No Start Date 01/18/2018 Inactive Lantus Solostar U-100 Insulin 100 unit/mL (3 mL) subcutaneous pen RxNorm: 090791 22 Unit(s) SQ BID No Start Date 01/10/2018 Inactive levothyroxine 112 mcg tablet RxNorm: 041886 1 Tablet(s) PO daily No Start Date 01/18/2018 Inactive Humalog KwikPen (U-100) Insulin 100 unit/mL subcutaneous RxNorm: 2478753 Unit(s) SQ us per sliding scale TID No Start Date 01/18/2018 Inactive simvastatin 40 mg tablet RxNorm: 036386 1 Tablet(s) PO daily No Start Date 01/18/2018 Inactive gabapentin 100 mg capsule RxNorm: 392761 1 Capsule(s) PO TID No Start Date 01/18/2018 Inactive lisinopril 20 mg-hydrochlorothiazide 25 mg tablet RxNorm: 731099 1 Tablet(s) PO daily No Start Date 01/18/2018 Inactive Basaglar KwikPen U-100 Insulin 100 unit/mL (3 mL) subcutaneous RxNorm: 3757758 22 Unit(s) SQ BID No Start Date 01/18/2018 Inactive dispense quantity sufficient for 3 month supply atenolol 50 mg tablet RxNorm: 134117 1 Tablet(s) PO daily No Start Date 01/18/2018 Inactive Medication Administered No Medication Administered data Immunizations No Immunization data Assessments Condition Codes Effective Dates Mixed hyperlipidemia ICD-10: E78.2 ICD-9: 272.2 12/30/2017 Other specified hypothyroidism ICD-10: E03.8 ICD-9: 244.8 12/30/2017 Essential (primary) hypertension ICD-10: I10 ICD-9: 401.1 12/30/2017 Type 1 diabetes mellitus without complications ICD-10: E10.9 ICD-9: 250.00 12/30/2017 Reason For Visit Reason For Visit Effective Dates Notes diabetes mellitus 12/30/2017 Results Observation Observation Code Item Item Code Result Date Comp Metabolic Pos024 NA 138 mEq/L 01/06/2018 Comp Metabolic Nzo111 K 3.7 mEq/L 01/06/2018 Comp Metabolic Nnv962 CL 101 mEq/L 01/06/2018 Comp Metabolic Bvr689 CO2 24.0 mEq/L 01/06/2018 Comp Metabolic Qix184 ANION GAP 17 01/06/2018 Comp Metabolic Hql755 GLUCOSE 110 mg/dL 01/06/2018 Comp Metabolic Zpy358 Creat 0.9 mg/dL 01/06/2018 Comp Metabolic Hyy727 eGFR 70 ml/min/1.73m2 01/06/2018 Comp Metabolic Ycb630 BUN 16 mg/dL 01/06/2018 Comp Metabolic Lxp470 B/C Ratio 18.0 Ratio 01/06/2018 Comp Metabolic Pko339 CALCIUM 9.9 mg/dL 01/06/2018 Comp Metabolic Rrd674 ALK PHOS 91 U/L 01/06/2018 Comp Metabolic Cii327 AST(SGOT) 17 U/L 01/06/2018 Comp Metabolic Hpk195 ALT(SGPT) 21 U/L 01/06/2018 Comp Metabolic Evl504 BILI T 1.0 mg/dL 01/06/2018 Comp Metabolic Nat203 ALBUMIN 4.5 g/dL 01/06/2018 Comp Metabolic Oyg173 TPRO 7.3 g/dL 01/06/2018 Comp Metabolic Rvq462 GLOB 2.9 g/dL 01/06/2018 Comp Metabolic Wnm133 A/G Ratio 1.6 Ratio 01/06/2018 Comp Metabolic Urg031 Osmo 278 mOsmo 01/06/2018 %Hba1C Zig894 % HbA1c 63238- 6 6.9 % 01/06/2018 %Hba1C Kiv078 Gluc Ave 151 mg/dL 01/06/2018 Lipid Ord30 CHOL 244 mg/dL 01/06/2018 Lipid Ord30 HDL 62.0 mg/dl 01/06/2018 Lipid Ord30 TRIG 107 mg/dL 01/06/2018 Lipid Ord30 LDL 161 mg/dL 01/06/2018 Lipid Ord30 C/HDL 3.9 Ratio 01/06/2018 Cbc With Differential Ord2 WBC 11.39 K/ul 01/06/2018 Cbc With Differential Ord2 RBC 4.33 M/ul 01/06/2018 Cbc With Differential Ord2 HGB 14.3 g/dl 01/06/2018 Cbc With Differential Ord2 Neut% 71.5 % 01/06/2018 Cbc With Differential Ord2 HCT 42.1 % 01/06/2018 Cbc With Differential Ord2 MCV 97.2 fl 01/06/2018 Cbc With Differential Ord2 Lymph% 20.5 % 01/06/2018 Cbc With Differential Ord2 MCH 33.0 pg 01/06/2018 Cbc With Differential Ord2 [place]% 7.7 % 01/06/2018 Cbc With Differential Ord2 [...] 2.34 K/ul 01/06/2018 Cbc With Differential Ord2 [place] ABS# 0.9 K/ul 01/06/2018 Cbc With Differential Ord2 Eos ABS# 0.0 K/ul 01/06/2018 Cbc With Differential Ord2 Baso ABS# 0.0 K/ul 01/06/2018 Free T4 [id number] FREE T4 1.13 ng/dL 01/06/2018 Tsh Ord6 TSH (3rd IS) 1.40 uIU/mL 01/06/2018 Review of Systems System Result Effective Dates Constitutional No recent illness 12/30/2017 Constitutional No [...] No Procedures data Vital Signs Date Vital 12/30/2017 Blood Pressure 1: 140/76 Code: 8480-6 Blood Pressure 1: 158/92 Code: 8480-6 BMI: 31.8 Code: 80137-1 Heart Rate 1: 84 bpm Height: 5'4" SpO2: 98% Weight: 185 lbs Functional Status No Functional Status data History of Present Illness Symptom Name Status Result Effective Date Notes diabetes mellitus Quality insulin dependent 12/30/2017 None [...] data Encounters Encounter Performer Location Codes Date OFFICE VISIT, NEW - LEVEL 4 Diagnosis: Type 1 diabetes mellitus without complications[ICD10: E10.9] Diagnosis: Other specified hypothyroidism[ICD10: E03.8] Diagnosis: Essential (primary) hypertension[ICD10: I10] Diagnosis: Mixed hyperlipidemia[ICD10: E78.2] [facility] CPT-4: 12195 12/30/2017 Plan of Care Planned Activity Notes Codes Status Date Visit Plan: Diabetes Mellitus - controlled - [...] to medications. 12/30/2017 Appointment: [facility] [phone] [facility] [facility] 12/30/2017 Patient [...]
--- OUTSIDE RECORDS SUMMARY | 2018-09-22 17:51 | XMS REPORT | CCD ---
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 [id number] Unknown Family history Brother Diagnosis Age At [...] Unknown Retired 12/30/[address]: 870402489 Never smoker 12/30/[address]: 966323534 Never drinks alcohol 12/30/2017 Allergies, Adverse Reactions, [...] Start Date Stop Date Status Fill Instructions Premarin 0.45 mg tablet RxNorm: 999272 1 Tablet(s) PO daily No Start Date Active aspirin 325 mg tablet RxNorm: 392113 1 Tablet(s) PO daily No Start Date Active Lantus Solostar U-100 Insulin 100 unit/mL (3 mL) subcutaneous pen RxNorm: 108129 22 Unit(s) SQ BID No Start Date Active levothyroxine 112 mcg tablet RxNorm: 620015 1 Tablet(s) PO daily No Start Date Active Humalog KwikPen (U-100) Insulin 100 unit/mL subcutaneous RxNorm: 5152681 Unit(s) SQ us per sliding scale TID No Start Date Active simvastatin 40 mg tablet RxNorm: 691663 1 Tablet(s) PO daily No Start Date Active Vitamin D3 2,000 unit capsule RxNorm: 260897 1 Capsule(s) PO daily No Start Date Active gabapentin 100 mg capsule RxNorm: 445721 1 Capsule(s) PO TID No Start Date Active lisinopril 20 mg-hydrochlorothiazide 25 mg tablet RxNorm: 535742 1 Tablet(s) PO daily No Start Date Active atenolol 50 mg tablet RxNorm: 592443 1 Tablet(s) PO daily No Start Date Active Medication Administered No Medication Administered data Immunizations No Immunization data Assessments Condition Codes Effective Dates Mixed hyperlipidemia ICD-10: E78.2 ICD-9: 272.2 12/30/2017 Other specified hypothyroidism ICD-10: E03.8 ICD-9: 244.8 12/30/2017 Essential (primary) hypertension ICD-10: I10 ICD-9: 401.1 12/30/2017 Type 1 diabetes mellitus without complications ICD-10: E10.9 ICD-9: 250.00 12/30/2017 Reason For Visit Reason For Visit Effective Dates Notes diabetes mellitus 12/30/2017 Results No Results data Review of Systems System Result Effective Dates [...] Signs Date Vital 12/30/2017 Blood Pressure 1: 158/92 Code: 8480-6 Blood Pressure 1: 140/76 Code: 8480-6 BMI: 31.8 Code: 67349-4 Heart Rate 1: 84 bpm Height: 5'4" [...] hyperlipidemia[ICD10: E78.2] [facility] CPT-4: 47920 12/30/2017 Plan of Care Planned Activity Notes [...] medications. 12/30/2017 Appointment: [facility] Bund[facility] [phone] [facility] [facility] 12/30/2017 Patient Education: Patient Medication [...]
--- OUTSIDE RECORDS SUMMARY | 2018-09-22 17:51 | XMS REPORT | CCD ---
Author Author Cuca Bundy Organization Renu Mancera MD, [facility] Address [address] [place] [address] Phone Care Team Providers Care Anesthesia Resident Name Role Phone PP Unavailable CCM Unavailable Summary Purpose Interface Exchange Insurance Providers Payer name Policy type / Coverage type Covered libertarian ID Effective Begin Date Effective End Date [employer] Commercial Insurance [id number] Unknown Family history Brother Diagnosis Age At [...] Unknown Retired 12/30/[address]: 960446530 Never smoker 12/30/[address]: 570657874 Never drinks alcohol 12/30/2017 Allergies, Adverse Reactions, [...] Fill Instructions Premarin 0.45 mg tablet RxNorm: 942680 1 Tablet(s) PO daily No Start Date Active aspirin 325 mg tablet RxNorm: 955389 1 Tablet(s) PO daily No Start Date Active Lantus Solostar U-100 Insulin 100 unit/mL (3 mL) subcutaneous pen RxNorm: 434946 22 Unit(s) SQ BID No Start Date Active levothyroxine 112 mcg tablet RxNorm: 446986 1 Tablet(s) PO daily No Start Date Active Humalog KwikPen (U-100) Insulin 100 unit/mL subcutaneous RxNorm: 7810733 Unit(s) SQ us per sliding scale TID No Start Date Active simvastatin 40 mg tablet RxNorm: 041123 1 Tablet(s) PO daily No Start Date Active Vitamin D3 2,000 unit capsule RxNorm: 245131 1 Capsule(s) PO daily No Start Date Active gabapentin 100 mg capsule RxNorm: 037370 1 Capsule(s) PO TID No Start Date Active lisinopril 20 mg-hydrochlorothiazide 25 mg tablet RxNorm: 956848 1 Tablet(s) PO daily No Start Date Active atenolol 50 mg tablet RxNorm: 983517 1 Tablet(s) PO daily No Start Date [...] 1: 140/76 Code: 8480-6 BMI: 31.8 Code: 25651-9 Heart Rate 1: 84 bpm Height: 5'4" [...] hyperlipidemia[ICD10: E78.2] [facility] CPT-4: 12488 12/30/2017 Plan of Care Planned Activity Notes [...] medications. 12/30/2017 Appointment: Cuca Bund[facility]Ptel[facility] [address] [facility] [facility] 12/30/2017 Patient Education: [...]
--- OUTSIDE RECORDS SUMMARY | 2018-09-22 17:51 | XMS REPORT | CCD ---
Author Author Cuca Bundy Organization Renu Mancera MD, [facility] Address [address] [place] [address] Phone Care Team Providers Care Utility Worker Forge Name Role Phone PP Unavailable CCM Unavailable Summary Purpose Interface Exchange Insurance Providers Payer name Policy type / Coverage type Covered green party ID Effective Begin Date Effective End Date [employer] Commercial Insurance [id number] Unknown Family history Brother Diagnosis Age At [...] Unknown Retired 12/30/[address]: 322501765 Never smoker 12/30/[address]: 476235507 Never drinks alcohol 12/30/2017 Allergies, Adverse Reactions, [...] Start Date Stop Date Status Fill Instructions Lipitor 40 mg tablet RxNorm: 839808 1 Tablet(s) PO QHS 01/19/2018 01/13/2019 Active Premarin 0.45 mg tablet RxNorm: 568226 1 Tablet(s) PO daily 01/19/2018 01/13/2019 Active gabapentin 100 mg capsule RxNorm: 776614 1 Capsule(s) PO TID 01/19/2018 01/13/2019 Active atenolol 50 mg tablet RxNorm: 114282 1 Tablet(s) PO daily 01/19/2018 01/13/2019 Active lisinopril 20 mg-hydrochlorothiazide 25 mg tablet RxNorm: 052698 1 Tablet(s) PO daily 01/19/2018 01/13/2019 Active levothyroxine 112 mcg tablet RxNorm: 398515 1 Tablet(s) PO daily 01/19/2018 01/13/2019 Active Lipitor 40 mg tablet RxNorm: 845049 1 Tablet(s) PO QHS 01/19/2018 01/18/2018 Inactive aspirin 325 mg tablet RxNorm: 311876 1 Tablet(s) PO daily No Start Date Active Lantus Solostar U-100 Insulin 100 unit/mL (3 mL) subcutaneous pen RxNorm: 490790 22 Unit(s) SQ BID No Start Date Active Humalog KwikPen (U-100) Insulin 100 unit/mL subcutaneous RxNorm: 0669785 Unit(s) SQ us per sliding scale TID No Start Date Active Vitamin D3 2,000 unit capsule RxNorm: 722505 1 Capsule(s) PO daily No Start Date Active Premarin 0.45 mg tablet RxNorm: 699422 1 Tablet(s) PO daily No Start Date 01/18/2018 Inactive levothyroxine 112 mcg tablet RxNorm: 245264 1 Tablet(s) PO daily No Start Date 01/18/2018 Inactive simvastatin 40 mg tablet RxNorm: 047373 1 Tablet(s) PO daily No Start Date 01/18/2018 Inactive gabapentin 100 mg capsule RxNorm: 775179 1 Capsule(s) PO TID No Start Date 01/18/2018 Inactive lisinopril 20 mg-hydrochlorothiazide 25 mg tablet RxNorm: 446662 1 Tablet(s) PO daily No Start Date 01/18/2018 Inactive atenolol 50 mg tablet RxNorm: 153478 1 Tablet(s) PO daily No Start Date [...] Item Item Code Result Date Comp Metabolic Saq613 NA 138 mEq/L 01/06/2018 Comp Metabolic Jfw330 K 3.7 mEq/L 01/06/2018 Comp Metabolic Grq221 CL 101 mEq/L 01/06/2018 Comp Metabolic Qgs047 CO2 24.0 mEq/L 01/06/2018 Comp Metabolic Ynr014 ANION GAP 17 01/06/2018 Comp Metabolic Ewn161 GLUCOSE 110 mg/dL 01/06/2018 Comp Metabolic Wwv824 Creat 0.9 mg/dL 01/06/2018 Comp Metabolic Igf779 eGFR 70 ml/min/1.73m2 01/06/2018 Comp Metabolic Fab736 BUN 16 mg/dL 01/06/2018 Comp Metabolic Hmi099 B/C Ratio 18.0 Ratio 01/06/2018 Comp Metabolic Amb602 CALCIUM 9.9 mg/dL 01/06/2018 Comp Metabolic Ahm755 ALK PHOS 91 U/L 01/06/2018 Comp Metabolic Qkk063 AST(SGOT) 17 U/L 01/06/2018 Comp Metabolic Uta780 ALT(SGPT) 21 U/L 01/06/2018 Comp Metabolic Qga736 BILI T 1.0 mg/dL 01/06/2018 Comp Metabolic Ggl125 ALBUMIN 4.5 g/dL 01/06/2018 Comp Metabolic Rcn114 TPRO 7.3 g/dL 01/06/2018 Comp Metabolic Nvr716 GLOB 2.9 g/dL 01/06/2018 Comp Metabolic Dii804 A/G Ratio 1.6 Ratio 01/06/2018 Comp Metabolic Otl721 Osmo 278 mOsmo 01/06/2018 %Hba1C Rww400 % HbA1c 62497- 6 6.9 % 01/06/2018 %Hba1C Yuy822 Gluc [address] 151 mg/dL 01/06/2018 Lipid Ord30 [...] 33.0 pg 01/06/2018 Cbc With Differential Ord2 Amador% 7.7 % 01/06/2018 Cbc With Differential Ord2 [...] 2.34 K/ul 01/06/2018 Cbc With Differential Ord2 [place]ador ABS# 0.9 K/ul 01/06/2018 Cbc With Differential Ord2 Eos ABS# 0.0 K/ul 01/06/2018 Cbc With Differential Ord2 Baso ABS# 0.0 K/ul 01/06/2018 Free T4 Efe004 FREE T4 1.13 ng/dL 01/06/2018 Tsh Ord6 [...] 1: 158/92 Code: 8480-6 BMI: 31.8 Code: 99988-2 Heart Rate 1: 84 bpm Height: 5'4" [...] Diagnosis: Mixed hyperlipidemia[ICD10: E78.2] Cuca Mancera MD, [facility] CPT-4: 82562 12/30/2017 Plan of Care Planned Activity Notes [...] to medications. 12/30/2017 Appointment: Cuca Bundy WPtel: [address] [place], [place] [id number] New Patient 12/30/2017 Patient Education: Patient Medication [...]
--- OUTSIDE RECORDS SUMMARY | 2018-09-22 17:51 | XMS REPORT | CCD ---
Author Author Cuca Bundy Organization Renu Mancera MD, [facility] Address [address] [place] [address] Phone Care Team Providers Care Occupational Therapist'S Assistant Name Role Phone PP Unavailable CCM Unavailable Summary Purpose Interface Exchange Insurance Providers Payer name Policy type / Coverage type Covered libertarian ID Effective Begin Date Effective End Date [employer] Commercial Insurance [id number] Unknown Family history Brother Diagnosis Age At [...] Unknown Retired 12/30/[address]: 844185513 Never smoker 12/30/[address]: 794766171 Never drinks alcohol 12/30/2017 Allergies, Adverse Reactions, [...] Fill Instructions Premarin 0.45 mg tablet RxNorm: 712821 1 Tablet(s) PO daily No Start Date Active aspirin 325 mg tablet RxNorm: 446263 1 Tablet(s) PO daily No Start Date Active Lantus Solostar U-100 Insulin 100 unit/mL (3 mL) subcutaneous pen RxNorm: 695555 22 Unit(s) SQ BID No Start Date Active levothyroxine 112 mcg tablet RxNorm: 825623 1 Tablet(s) PO daily No Start Date Active Humalog KwikPen (U-100) Insulin 100 unit/mL subcutaneous RxNorm: 2000053 Unit(s) SQ us per sliding scale TID No Start Date Active simvastatin 40 mg tablet RxNorm: 720120 1 Tablet(s) PO daily No Start Date Active Vitamin D3 2,000 unit capsule RxNorm: 511197 1 Capsule(s) PO daily No Start Date Active gabapentin 100 mg capsule RxNorm: 450675 1 Capsule(s) PO TID No Start Date Active lisinopril 20 mg-hydrochlorothiazide 25 mg tablet RxNorm: 542803 1 Tablet(s) PO daily No Start Date Active atenolol 50 mg tablet RxNorm: 303734 1 Tablet(s) PO daily No Start Date [...] Observation Code Item Item Code Result Date Cbc With Differential Ord2 WBC 11.39 K/ul [...] 33.0 pg 01/06/2018 Cbc With Differential Ord2 [place]% 7.7 % 01/06/2018 Cbc With Differential Ord2 [...] 2.34 K/ul 01/06/2018 Cbc With Differential Ord2 [place] ABS# 0.9 K/ul 01/06/2018 Cbc With Differential Ord2 Eos ABS# 0.0 K/ul 01/06/2018 Cbc With Differential Ord2 Baso ABS# 0.0 K/ul 01/06/2018 Review of Systems System Result Effective [...] 1: 140/76 Code: 8480-6 BMI: 31.8 Code: 79669-4 Heart Rate 1: 84 bpm Height: 5'4" [...] hyperlipidemia[ICD10: E78.2] [facility] CPT-4: 15940 12/30/2017 Plan of Care Planned Activity Notes [...] to medications. 12/30/2017 Appointment: Cuca Bundy [facility]el[facility] [facility] 12/30/2017 Patient Education: Patient [...]
== END 2018-09-22 08:05 | disposition home or self-care (01) ==
LOC: SDC 06:24
PROVIDERS: ATTEND Specialist
DX: E11.36 Type 2 diabetes mellitus with diabetic cataract (principal); H25.12 Age-related nuclear cataract, left eye; I10 Essential (primary) hypertension; E03.9 Hypothyroidism, unspecified; E78.00 Pure hypercholesterolemia, unspecified; E78.5 Hyperlipidemia, unspecified; Z79.899 Other long term (current) drug therapy; Z79.82 Long term (current) use of aspirin; Z79.4 Long term (current) use of insulin

== ENCOUNTER 2018-09-27 09:58 | Outpatient (CLI) | payer OTHER ==
[~2018-09-27] VITALS: Ht 162.6 cm; Wt 81.6 kg
== END 2018-09-27 15:52 | disposition home or self-care (01) ==
LOC: PREOP 09:58
PROVIDERS: ATTEND Specialist
DX: Z01.818 Encounter for other preprocedural examination (principal)

== ENCOUNTER 2018-09-29 08:57 | Day surgery (SDC) | payer OTHER ==
[~2018-09-29] VITALS: Ht 162.6 cm; Wt 81.6 kg
[2018-09-29 08:57] VITALS: BP 134/61
[2018-09-29] MEDS ORDERED: PHENYLEPHRINE 10% OPHTH (NEO-SYN) 5 ML BTL ONE (08:58)
[2018-09-29] MEDS: TETRACAINE 0.5% OPHTH SOLN 4 ML BTL (SINGLE DOSE ONLY) OU PRN ×4 (09:07→09:27)
[2018-09-29] MEDS ORDERED: MOXIFLOXACIN OPHTH SOLN 5 MG/ML 0.3 ML SYRINGE OP ONE (09:15)
[2018-09-29] MEDS: PHENYLEPHRINE 10% OPHTH (NEO-SYN) 5 ML BTL OU SCH ×3 (09:15→09:27)
[2018-09-29] MEDS ORDERED: POVIDONE (BETADINE) OPHTH SOLN 5% 30 ML OP ONE (09:15)
[2018-09-29] MEDS ORDERED: LIDOCAINE PF 1% 2 ML AMP IR PRN (09:15)
[2018-09-29] MEDS ORDERED: TIMOLOL MALEATE 0.5% 5 ML (TIMOPTIC) BTL OU PRN (09:15)
[2018-09-29] MEDS: CYCLOPENTOLATE 1% (CYCLOGYL) 2 ML DROPS OP SCH ×3 (09:15→09:27)
[2018-09-29] MEDS ORDERED: MIDAZOLAM 2 MG/2 ML (VERSED) VIAL ONE (09:38)
--- NOTE | 2018-09-29 09:39 | Ophthalmologist Pre-Op Note ---
Pre-Operative Progress Note H&P Reviewed The H&P was reviewed, patient examined and no changes noted. Date H&P Reviewed: Sep 29, 2018 Time H&P Reviewed: 09:39 Pre-Op Dx Cataract, Right Eye JAQUELINE CATHERINE MD Sep 29, 2018 09:39
--- NOTE | 2018-09-29 09:59 | Ophthalmology Operative Report ---
Cataract removal/placement IOL PREOPERATIVE DIAGNOSIS: Cataract Right Eye POSTOPERATIVE DIAGNOSIS: Cataract Right Eye PROCEDURE: Cataract removal and placement of posterior chamber implant, right eye SURGEON: Remington Catherine ANESTHESIA: Topical with sedation COMPLICATIONS: None ESTIMATED BLOOD LOSS: Minimal DESCRIPTION OF PROCEDURE: After proper informed consent was obtained, the patient, a 58 female, was taken to the Operating Room and the right eye was anesthetized with tetracaine. The right eye was then prepped and draped in the usual manner. A wire lid speculum was placed. A paracentesis was made at the left hand position. Preservative free lidocaine was injected into the anterior chamber followed by viscoelastic. A clear corneal incision was made in the temporal position. A capsulorrhexis was preformed and the central nuclear and cortical material were removed. The posterior capsule was polished and Marcelo 22.5 [id number] IOL was placed into the capsular bag. The residual viscoelastic was aspirated and balanced saline solution was injected into the anterior chamber. Moxifloxacin was injected into the anterior chamber. The wound was checked and found to be water tight. The patient tolerated the procedure well without complications. REMINGTON CATHERINE MD Sep 29, 2018 09:59
[2018-09-29 10:03] VITALS: BP 112/60
[2018-09-29] MEDS ORDERED: acetaZOLAMIDE ER 500 MG CAP (DIAMOX SEQUELS) PO ONE (10:30)
--- NOTE | 2018-09-29 13:32 | Anesthesia-General Post-Op ---
MAC Patient Condition Mental Status/LOC: Same as Preop Cardiovascular: Satisfactory Nausea/Vomiting: Absent Respiratory: Satisfactory Pain: Controlled Complications: Absent Post Op Complications Complications None Follow Up Care/Instructions Patient Instructions None needed. Anesthesiology Discharge Order Discharge Order Patient is doing well, no complaints, stable vital signs, no apparent adverse anesthesia problems. No complications reported per nursing. BENTLEY TRAN CRNA Sep 29, 2018 13:32
== END 2018-09-29 10:03 | disposition home or self-care (01) ==
LOC: SDC 08:57
PROVIDERS: ATTEND Specialist
DX: H25.11 Age-related nuclear cataract, right eye (principal); E11.40 Type 2 diabetes mellitus with diabetic neuropathy, unspecified; I10 Essential (primary) hypertension; E03.9 Hypothyroidism, unspecified; E78.00 Pure hypercholesterolemia, unspecified; Z79.899 Other long term (current) drug therapy; Z79.82 Long term (current) use of aspirin

== ENCOUNTER → 2019-04-13 | Outpatient (CLI) | payer OTHER ==
[~2019-04-13] MED LIST changes: -LISI1TAB10 PO; +LISI1TAB26 PO
== END ==
LOC: RAD 09:00
PROVIDERS: ATTEND Nurse Practitioner Family
DX: Z12.31 Encounter for screening mammogram for malignant neoplasm of breast (principal)
CPT/HCPCS: 77067

== ENCOUNTER → 2020-11-21 | Outpatient (CLI) | payer OTHER ==
--- NOTE | 2020-11-21 12:27 | Diagnostic Imaging Report ---
INDICATION: Balance issues MRI brain obtained without IV contrast. There is no prior study for comparison. Diffusion weighted images demonstrate no ischemic changes. There is no subdural or epidural collection or acute intracranial hemorrhage. Ventricles are normal in size and position. There is no significant white matter disease in the cerebral hemispheres. Basal ganglia appear unremarkable. In the left cerebellum, there is a small apparent flow void in the cerebral white matter. The significance of this finding is unclear. This may be a venous angioma but this cannot be confirmed without contrast. Visualized portions of the sinuses are clear. Orbital contents are unremarkable. Mastoid air cells are well aerated. IMPRESSION: There is a tubular flow void in the left cerebellar white matter. The significance of this finding is not clear, this could represent venous angioma, consider MRI with contrast for further evaluation. There is no other abnormal finding. Dictated by: Dictated on workstation # [id number]
== END ==
LOC: RAD 11:00
PROVIDERS: ATTEND Nurse Practitioner Family
DX: R26.89 Other abnormalities of gait and mobility (principal)
CPT/HCPCS: 70551

== ENCOUNTER → 2021-01-16 | Outpatient (CLI) | payer OTHER ==
[~2021-01-16] MED LIST changes: +GADOTERATE 0.5 MMOL/ML (CLARISCAN) 20 ML VIAL IV ONE
--- NOTE | 2021-01-16 13:59 | Diagnostic Imaging Report ---
CLINICAL INDICATION: R90.89. Other abnormal findings on diagnostic imaging of [employer]. Patient with history of balance issues. EXAM: MRI of the brain performed without IV contrast. Sequences include axial DWI, ADC map, coronal gradient echo, axial T2, axial FLAIR, axial T1, and sagittal T1. COMPARISON: MRI of the brain without contrast dated 11/21/2020. FINDINGS: There is no evidence of acute cerebral infarct, intracranial hemorrhage, or gross mass effect. There is no abnormal IV contrast enhancement. Again seen developmental venous anomaly within the left cerebellum. There is no adjacent parenchymal edema. The brain parenchymal volume appears appropriate for patient's age. There is normal bhakta-white matter distinction. There is no significant midline shift or herniation. The cowl[place] of [place]aya vascular structures show no gross abnormality as visualized. The pituitary gland, sella, and suprasellar regions are unremarkable as visualized. There is no evidence of hydrocephalus. The basal cisterns are unremarkable. The skull, extracranial soft tissue, and orbits are unremarkable. There is mild ethmoid sinus mucosal thickening. There is minimal fluid in the right mastoid air cells. IMPRESSION: 1: There is no evidence of acute intracranial process. 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 Brain parenchyma is otherwise unremarkable for age. 3: Mild ethmoid sinus disease and minimal fluid in the right mastoid air cells. Dictated by: Dictated on workstation # [id number]
== END ==
LOC: RAD 09:47
PROVIDERS: ATTEND Family Medicine
DX: J32.2 Chronic ethmoidal sinusitis (principal); R90.89 Other abnormal findings on diagnostic imaging of central nervous system
CPT/HCPCS: 70553

== ENCOUNTER 2022-11-15 09:18 | Emergency (ER) | payer OTHER ==
[~2022-11-15] VITALS: Ht 162 cm; Wt 79.4 kg
[~2022-11-15 09:18] MED LIST changes: -GADOTERATE 0.5 MMOL/ML (CLARISCAN) 20 ML VIAL IV ONE; -LISI1TAB26 PO; +LISI1TAB48 PO
--- NOTE | 2022-11-15 09:36 | ED Lower Extremity ---
General Chief Complaint: Lower Extremity Stated Complaint: LT FOOT/ANKLE/LEG PAIN Nursing Triage Note: PT TO RM 6 BY WHEELCHAIR WITH C/O L ANKLE PAIN X1 WEEK WITH INCREASING PAIN MOVING UP LEG LAST NIGHT Source: patient Exam Limitations: no limitations History of Present Illness Date Seen by Provider: Nov 15, 2022 Time Seen by Provider: 09:20 Initial Comments 62-year-old female with past medical history of diabetes and neuropathy coming in due to left ankle and calf pain for the past week. Started in her ankle, began moving up to her calf last night which concerned her. She is unsure if she is really noticed any swelling or redness. Denies any prior history of DVT or PE. No recent surgeries. No chest pain or shortness of breath. She called her regular doctor, and they were concerned she could have a blood clot and wanted her evaluated. She denies any trauma to her extremity. Otherwise denying any other acute complaints. Allergies and Home Medications Allergies Coded Allergies: No Known Drug Allergies (Unverified , 09/27/18) Patient Home Medication List Home Medication List Reviewed: Yes Aspirin (Aspirin) 325 Mg Tablet, 325 MG PO DAILY, (Reported) Entered as Reported by: HARJINDER RAMESH on 09/20/18 1431 Atenolol (Atenolol) 50 Mg Tablet, 50 MG PO DAILY, (Reported) Entered as Reported by: HARJINDER RAMESH on 09/20/18 1431 Atorvastatin Calcium (Atorvastatin Calcium) 40 Mg Tablet, 40 MG PO DAILY, (Reported) Entered as Reported by: HARJINDER RAMESH on 09/20/18 1431 Cholecalciferol (Vitamin D3) (Vitamin D3) 2,000 Unit Capsule, 2,000 UNIT PO DAILY, (Reported) Entered as Reported by: HARJINDER RAMESH on 09/20/18 1431 Estrogens Conjugated (Premarin) 0.45 Mg Tab, 0.45 MG PO DAILY, (Reported) Entered as Reported by: HARJINDER RAMESH on 09/20/18 1431 Gabapentin (Gabapentin) 100 Mg Capsule, 100 MG PO Q8H, (Reported) Entered as Reported by: HARJINDER RAMESH on 09/20/18 1431 Insulin Aspart (Novolog) 100 Unit/1 Ml Susp, 1-10 UNIT SQ AC, (Reported) Entered as Reported by: HARJINDER RAMESH on 09/20/18 1431 Insulin Glargine,Hum.rec.anlog (Basaglar Kwikpen U-100) 100 Unit/1 Ml In suln.pen, 20 UNIT SQ BID, (Reported) Entered as Reported by: HARJINDER RAMESH on 09/20/18 1431 Levothyroxine Sodium (Levothyroxine Sodium) 112 Mcg Tablet, 112 MCG PO DAILY, (Reported) Entered as Reported by: HARJINDER RAMESH on 09/20/18 1431 Lisinopril/Hydrochlorothiazide (Lisinopril-Hctz 20-25 mg Tab) 1 Each Tablet, 1 EACH PO DAILY, (Reported) Entered as Reported by: HARJINDER RAMESH on 09/20/18 1431 Review of Systems Constitutional: No fever EENTM: no symptoms reported Respiratory: no symptoms reported Cardiovascular: no symptoms reported Gastrointestinal: no symptoms reported Genitourinary: no symptoms reported Musculoskeletal: see HPI Skin: no symptoms reported Past Ctdgqfs-Pnbwhg-Gpwsfl Hx Patient Social History Tobacco Use?: No Use of E-Cig and/or Vaping dev: No Substance use?: No Alcohol Use?: No Pt feels they are or have been: No Past Medical History Surgery/Hospitalization HX: DM, HTN, HLD, NEUROPATHY HYSTO, TUBAL, CATARACT Physical Exam Vital Signs Vital Signs - First Documented 11/15/22 09:23 Temp 36.6 Pulse 94 Resp 16 B/P (MAP) 162/75 (104) Pulse Ox 97 O2 Delivery Room Air Capillary Refill : Height, Weight, BMI Height: 5'4.00" Weight: 180lbs. 0.0oz. 81.594402lq; 30.00 BMI Method: General Appearance: WD/WN, no apparent distress HEENT: PERRL/EOMI, normal ENT inspection, pharynx normal Neck: non-tender, full range of motion, supple, normal inspection Cardiovascular: regular rate, rhythm, no edema, no murmur Respiratory: chest non-tender, lungs clear, no respiratory distress, no accessory muscle use Gastrointestinal: normal bowel sounds, non tender, soft Legs: left leg other (Pain mostly along the tibialis anterior on the left side, no pain with calf squeeze, no swelling or redness, no bony tenderness) Neurologic/Tendon: normal sensation, normal motor functions, normal tendon f unctions Neurologic/Psychiatric: no motor/sensory deficits, alert, normal mood/affect Skin: normal color, warm/dry Progress/Results/Core Measures Results/Orders My Orders Orders - JUAN CARLOS RUCKER MD Us Venous Lower Ext Lt (11/15/22 09:32) Acetaminophen Tablet (Acetaminophen Ta (11/15/22 09:45) Medications Given in ED Current Medications Medications Dose Ordered Sig/Gaby Route Start Time Stop Time Status Last Admin Dose Admin Acetaminophen 1,000 mg ONCE ONCE PO 11/15/22 09:45 11/15/22 09:46 DC 11/15/22 09:48 1,000 MG Vital Signs/I&O 11/15/22 09:23 Temp 36.6 Pulse 94 Resp 16 B/P (MAP) 162/75 (104) Pulse Ox 97 O2 Delivery Room Air Blood Pressure Mean: 104 Progress Progress Note : Progress Note 62-year-old female with above history coming in due to left calf pain. ABCs were intact and vitals were stable on presentation. She is tender mostly over her tibialis anterior, does not have any significant clinical signs of a DVT. She has not had any type of trauma, no bony tenderness, x-ray therefore not ordered. Ultrasound of the leg ordered to further rule out for DVT which was negative. Likely muscular in nature. I believe she is stable for discharge with outpatient follow-up. She was sent home with strict return precautions Diagnostic Imaging Diagonstic Imaging: Ultrasound (left leg) Comments NAME: BOOGIE MCKEON [facility] REC#: [id number] PT STATUS: REG ER : 1960 PHYSICIAN: JUAN CARLOS RUCKER MD ADMIT DATE: 11/15/22/ER Draft Date of Exam:11/15/22 US VENOUS LOWER EXT LT Procedure: US left lower extremity venous. Technique: Multiple real-time grayscale images were obtained over the left lower extremity in various projections. Additional duplex Doppler and color Doppler images were also obtained. Date: November 15, 2022. Indication: 62-year-old female, left calf pain and tightness. Comparison: None. Findings: The left common femoral vein, left superficial femoral vein, and left popliteal vein are all compressible with normal blood flow and response to augmentation. The imaged portions of the left deep femoral vein are patent. The left posterior tibial and peroneal veins are patent. Impression: 1. Negative for left lower extremity deep venous thrombosis. Dictated on workstation # [id number] Dict: 11/15/22 1008 Trans: 11/15/22 1014 CVB [id number] Interpreted by: AURA RODRIGUEZ MD Electronically signed by: Departure Impression Primary Impression: Left leg pain Disposition: HOME, SELF-CARE Condition: Stable Departure-Patient Inst. Decision time for Depature: 10:25 Referrals: TINY CHAPMAN MD (PCP/Family) Primary Care Physician Patient Instructions: Muscle and Bone Pain (DC) Add. Discharge Instructions: Fortunately there is no blood clot in your leg and there is no bony tenderness that would be concerning for any type of broken bone. You hurt over the tibialis anterior which is the muscle on the front side of your leg. It is possible this is just strained. Please follow-up with your regular doctor if you are not seeing improvement with regular medicines like ibuprofen and Tylenol. You can also try heating pad. If you notice your leg is doubling in size and getting very red, we would want you to be reevaluated GEM. Work/School Note: Family Work Note, Patient Received Medical Care In the Emergency Department On: Nov 15, 2022 Patient Will Be Able to Return to Work/School On: Nov 16, 2022 Work Release Form Date Seen in the Emergency Department: Nov 15, 2022 Return to Work: Nov 16, 2022 JUAN CARLOS RUCKER MD Nov 15, 2022 09:36
[2022-11-15] MEDS ORDERED: ACETAMINOPHEN 500 MG TABLET PO ONE (09:45)
--- NOTE | 2022-11-15 10:15 | Diagnostic Imaging Report ---
Procedure: US left lower extremity venous. Technique: Multiple real-time grayscale images were obtained over the left lower extremity in various projections. Additional duplex Doppler and color Doppler images were also obtained. Date: November 15, 2022. Indication: 62-year-old female, left calf pain and tightness. Comparison: None. Findings: The left common femoral vein, left superficial femoral vein, and left popliteal vein are all compressible with normal blood flow and response to augmentation. The imaged portions of the left deep femoral vein are patent. The left posterior tibial and peroneal veins are patent. Impression: 1. Negative for left lower extremity deep venous thrombosis. Dictated by: Dictated on workstation # [id number]
[2022-11-15 10:25] VITALS: BP 119/64
== END 2022-11-15 10:26 | disposition home or self-care (01) ==
LOC: EDUNIT# 09:18 → ER 09:20
DX: M79.605 Pain in left leg (principal)